=== PATIENT | female | born 1940 | race Caucasian/White ===

== ENCOUNTER 2017-05-28 10:13 | Outpatient (CLI) | payer MEDICARE ==
--- NOTE | 2017-05-28 11:49 | MRI ---
MRI LUMBAR SPINE WITHOUT CONTRAST: Date: 05/28/17 COMPARISON: 11/02/15. HISTORY: Back pain radiating down the right hip and leg for 6 months, right lower extremity radiculopathy. TECHNIQUE: Multiplanar, multisequence MR imaging of the lumbar spine provided without contrast. FINDINGS: Significant stable lumbar spine levoscoliosis present. The sagittal STIR imaging demonstrates no focal area of osseous marrow edema. There is diverticulosi s suspected in the region of the sigmoid colon on the right, only appreciated on the sagittal imagin g. There is linear increased T2 signal adjacent to the sigmoid diverticula on the STIR imaging sugge sting the possibility of associated diverticulitis. Dedicated CT examination of abdomen/pelvis is ad vised as this is only partially imaged on this examination. Assuming five lumbar-type vertebral bodies, conus medullaris terminates at T12-L1. There is minimal anterolisthesis of L5 on S1, stable. T11-12: Disc space narrowing, disc desiccation, and posterior osteophyte formation noted. Bilateral facet hy pertrophy present. No significant central canal stenosis. Mild bilateral neural foraminal stenosis. T12-L1: Bilateral facet hypertrophy present with disc space narrowing, disc desiccation, and mild disc osteo phyte complex. No associated central canal stenosis. Mild bilateral neural foraminal stenosis. L1-2: Mild bilateral facet hypertrophy. There is disc space narrowing, disc desiccation, and posterior dis c osteophyte complex. No significant central canal stenosis. Mild/moderate right neural foraminal st enosis. No significant left neural foraminal stenosis. L2-3: Disc space narrowing and disc desiccation noted. Disc osteophyte complex present with no significant central canal stenosis. Mild bilateral facet hypertrophy, right greater than left. Mild bilateral n eural foraminal stenosis. L3-4: Disc space narrowing and disc desiccation present with disc osteophyte complex. No significant centr al canal stenosis. Mild bilateral neural foraminal stenosis. L4-5: Disc space narrowing and disc desiccation present. Disc osteophyte complex noted. Bilateral facet hy pertrophy present, left greater than right. Mild bilateral neural foraminal stenosis, left greater t ferguson right. L5-S1: Bilateral facet hypertrophy present with mild bilateral neural foraminal stenosis. There is disc spa ce narrowing, disc desiccation, and vacuum disc formation. No significant central canal stenosis. IMPRESSION: 1. Multilevel degenerative change as detailed above. 2. Partially imaged pelvis demonstrates colonic diverticulosis with adjacent linear increased T2 si gnal suggesting inflammatory change on the basis of diverticulitis. Colonic neoplasia is a possibil ity as well. This is only partially imaged, however. Thus, dedicated CT examination of abdomen/pelvi s with IV and oral contrast is advised for further assessment. CODE T. POS: SJ
== END 2017-05-28 10:14 | disposition home or self-care (01) ==
LOC: SCSMRI 10:13
PROVIDERS: ATTEND Anesthesiology Pain Medicine
DX: M47.26 Other spondylosis with radiculopathy, lumbar region (principal); M70.62 Trochanteric bursitis, left hip; K57.30 Diverticulosis of large intestine without perforation or abscess without bleeding
CPT/HCPCS: 72148

== ENCOUNTER 2017-11-09 13:41 | Outpatient (CLI) | payer MEDICARE | END 2017-11-09 13:42 | disposition home or self-care (01) | LOC: BICMAMMO 13:41 | PROVIDERS: ATTEND Obstetrics & Gynecology | DX: Z12.31 Encounter for screening mammogram for malignant neoplasm of breast (principal) | CPT/HCPCS: 77063; 77067 ==

== ENCOUNTER 2019-01-09 14:32 | Emergency (ER) | payer MEDICARE | END 2019-01-09 15:10 | disposition home or self-care (01) | LOC: SCSER 14:32 | DX: L02.612 Cutaneous abscess of left foot (principal); I10 Essential (primary) hypertension; F32.9 Major depressive disorder, single episode, unspecified | CPT/HCPCS: 10060 ==

== ENCOUNTER 2019-01-27 11:22 | Emergency (ER) | payer MEDICARE ==
[2019-01-27 12:14] LABS: #Basophils 0.1 thou/uL (0.0-0.2); #Lymphocytes 0.7 thou/uL (1.20-3.40); #Neutrophils 15.1 thou/uL (1.40-6.50); %Basophils 0.4 % (0.0-1.0); %Eosinophils 0.3 % (0.0-10.0); %Lymphocytes 4.1 % (21.0-51.0); %Monocytes 5.9 % (0.0-10.0); %Neutrophils 89.3 % (42.0-75.0); Hemoglobin 13.4 g/dL (12.0-16.0); Mean Corpuscular HGB CONC 34.4 g/dL (32.0-36.0); Mean Corpuscular Hemoglobin 29.1 pg (27.0-31.0); Mean Corpuscular Volume 84.4 fL (78.0-98.0); Mean Platelet Volume 8.2 fL (7.4-10.4); Platelet Count 192 thou/uL (130-400); RBC Distribution Width 12.7 % (11.5-14.5); Red Blood Cell (RBC) Count 4.59 mill/uL (4.20-5.40); White Blood Cell (WBC) Count 16.9 thou/uL (4.8-10.8)
[2019-01-27 12:26] LABS: ALT (SGPT) 20 U/L (8-55); AST (SGOT) 17 U/L (5-34); Albumin 3.8 g/dL (3.4-4.8); Alkaline Phosphatase 60 U/L (40-150); Anion Gap 12 mmol/L (10-20); BUN (Urea Nitrogen) 20 mg/dL (9.8-20.1); Bilirubin, Total 0.9 mg/dL (0.2-1.2); Calc. Creatinine Clearance 0 mL/min (70-130); Calcium 9.1 mg/dL (7.8-10.44); Carbon Dioxide 25 mmol/L (23-31); Chloride 102 mmol/L (98-107); Estimated GFR-MDRD 78; Globulin 2.7 g/dL (2.4-3.5); Glucose 134 mg/dL (83-110); Potassium 3.1 mmol/L (3.5-5.1); Protein, Total 6.5 g/dL (6.0-8.3); Sodium 136 mmol/L (136-145)
[2019-01-27 12:47] LABS: Bilirubin Small (Negative); Blood, Urine Negative (Negative); Clarity Cloudy (Clear); Glucose, Urine (Dipstick) Negative (Negative); Leukocyte Moderate (Negative); Nitrite Negative (Negative); Protein, Urine (Dipstick) 30 mg/dL (Neg-Trace)
[2019-01-27] MEDS ORDERED: Pot Chloride/Pot Bicarb/Cit Ac 25 mEq Effervescent Tablet ONE (12:49)
[2019-01-27 12:51] LABS: Bacteria/HPF 1+ HPF (None Seen); RBC/HPF 0-3 HPF (0-3); WBC/HPF 0-3 HPF (0-3)
== END 2019-01-27 13:22 | disposition home or self-care (01) ==
LOC: SCSER 11:22
DX: E86.0 Dehydration (principal); E87.6 Hypokalemia; F32.9 Major depressive disorder, single episode, unspecified
CPT/HCPCS: 80053; 81003; 81015; 85025; 85379; 99284

== ENCOUNTER 2019-05-02 12:42 | Outpatient (CLI) | payer MEDICARE ==
--- NOTE | 2019-05-02 15:50 | MMO ---
Bilateral MAMMO Bilat Screen [facility]. CLINICAL HISTORY: Patient is 78 years old and is seen for screening. The patient has no family history of breast cancer. The patient has no personal history of cancer. The patient has a history of left Excisional Biopsy in - benign. VIEWS: The views performed were: bilateral craniocaudal with tomosynthesis and bilateral mediolateral oblique with tomosynthesis. FILMS COMPARED: The present examination has been compared to prior imaging studies performed at [facility] on 11/09/2017, and at [facility] on 06/16/2014 and 09/28/2015. This study has been interpreted with the assistance of computer-aided detection. MAMMOGRAM FINDINGS: There are scattered fibroglandular densities. There are stable benign appearing calcifications seen in both breasts. There are no suspicious masses, calcifications or areas of architectural distortion. There are no suspicious masses, suspicious calcifications, or new areas of architectural distortion. IMPRESSION: THERE IS NO MAMMOGRAPHIC EVIDENCE OF MALIGNANCY. A ROUTINE FOLLOW-UP MAMMOGRAM IN 1 YEAR IS RECOMMENDED. THE RESULTS OF THIS EXAM WERE SENT TO THE PATIENT. ACR BI-RADS Category 2 - Benign finding MAMMOGRAPHY NOTE: 1. A negative mammogram report should not delay a biopsy if a dominant of clinically suspicious mass is present. 2. Approximately 10% to 15% of breast cancers are not detected by mammography. 3. Adenosis and dense breasts may obscure an underlying neoplasm. Reported by: AARON ROCHA MD Electonically Signed: [id number]
== END 2019-05-02 12:43 | disposition home or self-care (01) ==
LOC: BICMAMMO 12:42
PROVIDERS: ATTEND Internal Medicine
DX: Z12.31 Encounter for screening mammogram for malignant neoplasm of breast (principal); Z91.89 Other specified personal risk factors, not elsewhere classified
CPT/HCPCS: 77063; 77067

== ENCOUNTER 2019-07-05 10:19 | Emergency (ER) | payer MEDICARE ==
[2019-07-05] MEDS ORDERED: Clindamycin/D5W 600 mg/50 ml Premix Bag ONE (10:55)
[2019-07-05] MEDS ORDERED: Piperacillin/Tazobactam 4.5 GM VIAL ONE (10:55)
[2019-07-05 11:14] LABS: #Basophils 0.1 thou/uL (0.0-0.2); #Eosinphils 0.2 thou/uL (0.0-0.7); #Lymphocytes 2.1 thou/uL (1.20-3.40); #Monocytes 0.7 thou/uL (0.11-0.59); #Neutrophils 6.2 thou/uL (1.40-6.50); %Eosinophils 1.7 % (0.0-10.0); %Lymphocytes 22.6 % (21.0-51.0); %Monocytes 7.4 % (0.0-10.0); %Neutrophils 67.4 % (42.0-75.0); Hemoglobin 13.4 g/dL (12.0-16.0); Mean Corpuscular HGB CONC 32.8 g/dL (32.0-36.0); Mean Corpuscular Hemoglobin 28.4 pg (27.0-31.0); Mean Corpuscular Volume 86.7 fL (78.0-98.0); Mean Platelet Volume 9.6 fL (7.4-10.4); Platelet Count 234 thou/uL (130-400); RBC Distribution Width 12.1 % (11.5-14.5); Red Blood Cell (RBC) Count 4.73 mill/uL (4.20-5.40); White Blood Cell (WBC) Count 9.2 thou/uL (4.8-10.8)
[2019-07-05 11:25] LABS: ALT (SGPT) 26 U/L (8-55); AST (SGOT) 21 U/L (5-34); Albumin 4.2 g/dL (3.4-4.8); Alkaline Phosphatase 79 U/L (40-110); Anion Gap 15 mmol/L (10-20); BUN (Urea Nitrogen) 14 mg/dL (9.8-20.1); Bilirubin, Total 0.8 mg/dL (0.2-1.2); Calc. Creatinine Clearance 0 mL/min (70-130); Calcium 9.8 mg/dL (7.8-10.44); Carbon Dioxide 27 mmol/L (23-31); Chloride 100 mmol/L (98-107); Estimated GFR-MDRD 82; Glucose 111 mg/dL (83-110); Potassium 3.5 mmol/L (3.5-5.1); Protein, Total 7.2 g/dL (6.0-8.3); Sodium 138 mmol/L (136-145)
== END 2019-07-05 13:57 | disposition short-term general hospital (02) ==
LOC: SCSER 10:19
DX: L03.116 Cellulitis of left lower limb (principal); I10 Essential (primary) hypertension; F32.9 Major depressive disorder, single episode, unspecified; Z79.899 Other long term (current) drug therapy
CPT/HCPCS: 36415; 80053; 83605; 85025; 87040; 96365; 96366; 96367; 96368; J2543; J3370; J3490

== ENCOUNTER 2021-09-19 19:00 | Outpatient (CLI) | payer MEDICARE, OTHER | END 2021-09-19 19:01 | disposition home or self-care (01) | LOC: SLEEPLAB 19:00 | PROVIDERS: ATTEND Physician Assistant | DX: G47.33 Obstructive sleep apnea (adult) (pediatric) (principal); I10 Essential (primary) hypertension; R06.83 Snoring; G47.00 Insomnia, unspecified; G47.10 Hypersomnia, unspecified | CPT/HCPCS: 95810 ==

== ENCOUNTER 2021-11-18 10:48 | Outpatient (CLI) | payer MEDICARE, OTHER | END 2021-11-18 10:49 | disposition home or self-care (01) | LOC: BICRAD 10:48 | PROVIDERS: ATTEND Anesthesiology Pain Medicine | DX: M25.511 Pain in right shoulder (principal) ==

== ENCOUNTER 2022-09-28 08:51 | Outpatient (CLI) | payer MEDICARE, OTHER | END 2022-09-28 08:52 | disposition home or self-care (01) | LOC: BICRAD 08:51 | PROVIDERS: ATTEND Nurse Practitioner Family | DX: M25.551 Pain in right hip (principal); R07.89 Other chest pain | CPT/HCPCS: 71046 ==

== ENCOUNTER 2023-07-03 06:02 | Day surgery (SDC) | payer MEDICARE, OTHER ==
[2023-06-29 11:09] VITALS: BMI 35.4
[~2023-07-03 06:02] MED LIST: EPINEPHrine 0.3 MG in Ophthalmic Irrigation Solution 500 ML IRR SCH
[2023-07-03] MEDS ORDERED: Cyclopentolate W/ Phenylephrin 5 ML BOT ONE (07:00)
[2023-07-03] MEDS ORDERED: fentaNYL PF 100 MCG/2 ML SYRINGE ONE ×2 (07:07→08:47)
[2023-07-03] MEDS ORDERED: PROPOFOL 20 ML ONE (07:20)
[2023-07-03] MEDS ORDERED: Lidocaine 1% PF 5 ML VIAL ONE ×2 (07:21→07:44)
[2023-07-03] MEDS ORDERED: Bupivacaine 0.75% 10 ML VIAL ONE (07:44)
[2023-07-03] MEDS ORDERED: Triamcinolone 40 MG/ML VIAL ONE (07:44)
[2023-07-03] MEDS ORDERED: CEFAZOLIN 1 GM VIAL ONE (07:44)
[2023-07-03] MEDS ORDERED: Maxitrol 0.1% Opth Oint 3.5 GM TUBE ONE (07:44)
[2023-07-03] MEDS ORDERED: Lidocaine 4% PF 5 ML AMP ONE (07:44)
== END 2023-07-03 08:35 | disposition home or self-care (01) ==
LOC: SDC 06:02
PROVIDERS: ATTEND Ophthalmology Retina Specialist
PROC: 08T53ZZ Resection of Left Vitreous, Percutaneous Approach (ICD-10-PCS; principal; 2023-07-03)
DX: H43.392 Other vitreous opacities, left eye (principal); Z88.2 Allergy status to sulfonamides
CPT/HCPCS: J0171; J0690; J2704; J3301; J3490

== ENCOUNTER 2023-08-23 11:33 | Outpatient (CLI) | payer MEDICARE, OTHER | END 2023-08-23 11:34 | disposition home or self-care (01) | LOC: RAD 11:33 | PROVIDERS: ATTEND Physician Assistant | DX: R06.02 Shortness of breath (principal) | CPT/HCPCS: 71046 ==

== ENCOUNTER 2023-09-21 05:54 | Day surgery (SDC) | payer MEDICARE, OTHER ==
[2023-09-20 12:32] VITALS: BMI 35.2
[2023-09-21] MEDS ORDERED: PHENYLEPHRINE-NS 100 MCG/ML 10 ML SYRINGE ONE (07:01)
[2023-09-21] MEDS ORDERED: PROPOFOL 20 ML ONE ×3 (07:01→08:13)
[2023-09-21] MEDS ORDERED: Lidocaine 2% PF 5 ML VIAL ONE (07:01)
[2023-09-21 09:58] LABS: #Basophils 0.1 thou/uL (0.0-0.2); #Monocytes 0.4 thou/uL (0.11-0.59); #Neutrophils 5.2 thou/uL (1.40-6.50); %Basophils 0.6 % (0.0-1.0); %Eosinophils 0.5 % (0.0-10.0); %Lymphocytes 26.4 % (21.0-51.0); %Monocytes 5.5 % (0.0-10.0); %Neutrophils 66.7 % (42.0-75.0); Hematocrit 34.8 % (36.0-47.0); Hemoglobin 10.6 g/dL (12.0-16.0); Mean Corpuscular HGB CONC 30.5 g/dL (32.0-36.0); Mean Corpuscular Hemoglobin 22.7 pg (27.0-31.0); Mean Corpuscular Volume 74.5 fl (78.0-98.0); Mean Platelet Volume 9.9 fL (7.4-10.4); Platelet Count 232 10x3/uL (130-400); Red Blood Cell (RBC) Count 4.67 mill/uL (4.20-5.40); White Blood Cell (WBC) Count 7.8 10x3/uL (4.8-10.8)
[2023-09-21 10:31] LABS: ALT (SGPT) 13 U/L (8-55); AST (SGOT) 16 U/L (5-34); Alkaline Phosphatase 76 U/L (40-110); Anion Gap 14 mmol/L (10-20); BUN (Urea Nitrogen) 16 mg/dL (9.8-20.1); Bilirubin, Total 0.6 mg/dL (0.2-1.2); Calc. Creatinine Clearance 79 mL/min (70-130); Calcium 9.3 mg/dL (7.8-10.44); Carbon Dioxide 25 mmol/L (23-31); Chloride 101 mmol/L (98-107); Estimated GFR 77; Globulin 2.6 g/dL (2.4-3.5); Glucose 124 mg/dL (83-110); Potassium 3.2 mmol/L (3.5-5.1); Protein, Total 6.6 g/dL (5.8-8.1)
[2023-09-21 10:38] LABS: CellaVision Operator ID LAB.GE; Elliptocytes SLIGHT = 2-5 cells HPF (0-1); Microcytosis SLIGHT = 6-15 cells (100X) (0-5/hpf); Ovalocytes SLIGHT = 2-5 cells HPF (0-1); Platelet Adequacy Comment Platelets Normal; Polychromasia SLIGHT = 2-3 cells HPF (0-2)
[2023-09-21 10:44] LABS: Sodium 137 mmol/L (136-145)
[2023-09-21] MEDS ORDERED: Iopamidol-370 76% 500 ML MDV (1 ML CHARGE) ONE (15:04)
== END 2023-09-21 12:09 | disposition home or self-care (01) ==
LOC: SDC 05:54
PROVIDERS: ATTEND Internal Medicine Gastroenterology
PROC: 0DB98ZX Excision of Duodenum, Via Natural or Artificial Opening Endoscopic, Diagnostic (ICD-10-PCS; principal; 2023-09-21)
PROC: 0DB68ZX Excision of Stomach, Via Natural or Artificial Opening Endoscopic, Diagnostic (ICD-10-PCS; 2023-09-21)
PROC: 0DB98ZZ Excision of Duodenum, Via Natural or Artificial Opening Endoscopic (ICD-10-PCS; 2023-09-21)
PROC: 0DBM8ZZ Excision of Descending Colon, Via Natural or Artificial Opening Endoscopic (ICD-10-PCS; 2023-09-21)
PROC: 0DBL8ZX Excision of Transverse Colon, Via Natural or Artificial Opening Endoscopic, Diagnostic (ICD-10-PCS; 2023-09-21)
DX: D12.4 Benign neoplasm of descending colon (principal); D12.3 Benign neoplasm of transverse colon; K29.70 Gastritis, unspecified, without bleeding; D50.9 Iron deficiency anemia, unspecified; K44.9 Diaphragmatic hernia without obstruction or gangrene; K31.89 Other diseases of stomach and duodenum; K57.30 Diverticulosis of large intestine without perforation or abscess without bleeding; K63.3 Ulcer of intestine; K21.9 Gastro-esophageal reflux disease without esophagitis; I10 Essential (primary) hypertension; Z90.49 Acquired absence of other specified parts of digestive tract; Z90.710 Acquired absence of both cervix and uterus; Z79.899 Other long term (current) drug therapy
CPT/HCPCS: 36415; 71260; 74177; 80053; 82378; 85025; 88305; J2001; J2704; Q9967

== ENCOUNTER 2023-11-09 08:59 | Outpatient (CLI) | payer MEDICARE, OTHER ==
[2023-11-09 10:04] LABS: #Basophils 0.1 10x3/uL (0.0-0.2); #Eosinphils 0.2 10x3/uL (0.0-0.5); #Monocytes 0.7 10x3/uL (0.0-1.1); #Neutrophils 4.8 10x3/uL (1.5-8.4); %Eosinophils 2.8 % (0.0-6.0); %Lymphocytes 16.4 % (18.0-47.0); %Monocytes 9.5 % (0.0-10.0); %Neutrophils 69.9 % (40.0-75.0); Hematocrit 34.1 % (34.9-44.5); Hemoglobin 10.8 g/dL (12.0-15.5); Mean Corpuscular HGB CONC 31.7 g/dL (32.0-36.0); Mean Corpuscular Hemoglobin 27.6 pg (27.0-33.0); Mean Corpuscular Volume 87.2 fl (81.6-98.3); Mean Platelet Volume 9.6 fl (7.4-10.4); Platelet Count 165 10x3/uL (150-450); RBC Distribution Width 20.4 % (11.5-14.5); Red Blood Cell (RBC) Count 3.91 10x6/uL (3.90-5.03); White Blood Cell (WBC) Count 6.8 10x3/uL (3.5-10.5)
[2023-11-09 10:58] LABS: Anion Gap 12 mmol/L (10-20); BUN (Urea Nitrogen) 14 mg/dL (9.8-20.1); Calc. Creatinine Clearance 0 mL/min (70-130); Calcium 8.9 mg/dL (7.8-10.44); Carbon Dioxide 24 mmol/L (23-31); Chloride 109 mmol/L (98-107); Estimated GFR 78; Glucose 128 mg/dL (83-110); Potassium 3.7 mmol/L (3.5-5.1); Sodium 141 mmol/L (136-145)
[2023-11-09 14:55] LABS: Hemoglobin A1c 5.2 % (4.0-6.0)
== END 2023-11-09 09:00 | disposition home or self-care (01) ==
LOC: LABBT 08:59
PROVIDERS: ATTEND Specialist
DX: Z01.818 Encounter for other preprocedural examination (principal); C18.9 Malignant neoplasm of colon, unspecified
CPT/HCPCS: 71046; 80048; 83036; 85025

== ENCOUNTER 2023-11-09 09:00 | Inpatient (IN) | payer MEDICARE, OTHER ==
[2023-11-09 09:55] VITALS: BMI 35.4
[2023-11-13] MEDS ORDERED: fentaNYL 50 mcg/mL 1 mL Vial ONE ×3 (08:35→12:07)
[2023-11-13] MEDS ORDERED: Midazolam HCl 2 mg/2 ml Vial ONE (08:35)
[2023-11-13] MEDS ORDERED: Bupivacaine 0.25% HCL 30 ML VIAL ONE (08:35)
[2023-11-13] MEDS ORDERED: Acetaminophen 500 MG TAB ONE (08:49)
[2023-11-13] MEDS ORDERED: Ketorolac Tromethamine 30 MG (1 mL) VIAL ONE (08:49)
[2023-11-13] MEDS ORDERED: cefOXitin 2 GM VIAL ONE ×2 (09:02→12:18)
[2023-11-13] MEDS ORDERED: Sodium Chloride 0.9% 100 ML ONE (09:02)
[2023-11-13] MEDS ORDERED: EPINEPHrine 1 MG/ML VIAL ONE (09:54)
[2023-11-13] MEDS ORDERED: Lidocaine 1% (PF) 30 ML VIAL ONE (09:55)
[2023-11-13] MEDS ORDERED: Lidocaine 2% PF 5 ML VIAL ONE (10:02)
[2023-11-13] MEDS ORDERED: Dexamethasone 4 mg/ml Vial ONE (10:02)
[2023-11-13] MEDS ORDERED: Rocuronium Bromide 10 MG/ML (10ML VIAL) ONE (10:02)
[2023-11-13] MEDS ORDERED: PROPOFOL 20 ML ONE (10:02)
[2023-11-13] MEDS ORDERED: SUGAMMADEX SODIUM 200 MG/2 ML VIAL ONE (10:03)
[2023-11-13] MEDS ORDERED: ePHEDrine Sulfate 50 MG/10 ML VIAL ONE (10:38)
[2023-11-13] MEDS ORDERED: HYDROmorphone 2 MG/ML VIAL SLOW IVP PRN (11:07)
[2023-11-13] MEDS ORDERED: Ondansetron HCl/PF 4 MG/2 ML Vial IVP PRN (11:07)
[2023-11-13] MEDS ORDERED: Ondansetron PF 4 MG/2 ML Vial ONE (12:21)
[2023-11-13] MEDS ORDERED: Morphine 2 MG/ML VIAL SLOW IVP PRN (13:53)
[2023-11-13] MEDS ORDERED: Ipratropium/Albuterol 3 ML NEB NEB PRN (13:53)
[2023-11-13] MEDS ORDERED: hydrALAZINE 20 MG/ML VIAL SLOW IVP PRN (13:53)
[2023-11-13] MEDS ORDERED: Promethazine HCl 25 MG/ML VIAL IM PRN (13:53)
[2023-11-13] MEDS ORDERED: Morphine 4 MG/ML VIAL SLOW IVP PRN (13:53)
[2023-11-13] MEDS: D5 1/2 NS w/20 mEq KCL 1,000 ML IV SCH (17:20)
[2023-11-13] MEDS: Ketorolac Tromethamine 30 MG (1 mL) VIAL IVP SCH (17:21)
[2023-11-13] MEDS: Mirabegron ER 25 MG ER.TAB PO SCH (21:25)
[2023-11-13] MEDS: Famotidine 20 MG TAB PO SCH (21:25)
[2023-11-13] MEDS: Carvedilol 6.25 MG TAB PO SCH (21:26)
[2023-11-13] MEDS: Loratadine 10 MG TAB PO SCH (21:26)
[2023-11-13] MEDS: Famotidine/PF 20 mg/2ml Vial SLOW IVP SCH (21:28)
[2023-11-13] MEDS: Ondansetron PF 4 MG/2 ML Vial IVP PRN (23:08)
[2023-11-14 04:22] LABS: #Basophils Less than 0.03 10x3/uL (0.0-0.2); %Basophils 0.3 % (0.0-1.0); %Eosinophils 0.4 % (0.0-10.0); %Lymphocytes 15.9 % (21.0-51.0); %Neutrophils 76.1 % (42.0-75.0); Anion Gap 12 mmol/L (10-20); BUN (Urea Nitrogen) 6 mg/dL (9.8-20.1); Calc. Creatinine Clearance 102 mL/min (70-130); Calcium 8.3 mg/dL (7.8-10.44); Carbon Dioxide 25 mmol/L (23-31); Chloride 106 mmol/L (98-107); Estimated GFR 89; Glucose 140 mg/dL (83-110); Hematocrit 29.1 % (36.0-47.0); Hemoglobin 9.2 g/dL (12.0-16.0); Mean Corpuscular HGB CONC 31.6 g/dL (32.0-36.0); Mean Corpuscular Volume 88.4 fL (78.0-98.0); Mean Platelet Volume 9.9 fL (7.4-10.4); Platelet Count 127 10x3/uL (130-400); Potassium 2.9 mmol/L (3.5-5.1); RBC Distribution Width 18.2 % (11.5-14.5); Red Blood Cell (RBC) Count 3.29 mill/uL (4.20-5.40); Sodium 140 mmol/L (136-145)
[2023-11-14 05:39] LABS: Platelet Adequacy Comment Platelets Decreased; RBC Morphology Within Normal Limits
[2023-11-14] MEDS: Enoxaparin 40 MG (0.4 mL) SYRINGE SC SCH (08:56)
[2023-11-14] MEDS: Clopidogrel Bisulfate 75 MG TAB PO SCH (08:56)
[2023-11-14] MEDS: Aspirin 81 mg Enteric Coated Tablet PO SCH (08:57)
[2023-11-14] MEDS: Atorvastatin Calcium 20 MG TAB PO SCH (08:57)
[2023-11-14] MEDS: Zinc Sulfate 220 MG CAP PO SCH (08:57)
[2023-11-14] MEDS: Ferrous Sulfate 325 MG TAB PO SCH (08:57)
[2023-11-14] MEDS: Potassium Chloride 10 MEQ TAB PO SCH (08:57)
[2023-11-14] MEDS: Amlodipine 5 MG TAB PO SCH (08:57)
[2023-11-14] MEDS: Potassium Chloride 20 MEQ TAB PO SCH (08:57)
[2023-11-14] MEDS: D5 1/2 NS w/20 mEq KCL 1,000 ML IV SCH (12:23)
[2023-11-14] MEDS ORDERED: HYDROcodone/Acetaminophen 7.5/325 mg Tablet PO PRN (12:45)
[2023-11-14] MEDS ORDERED: Acetaminophen 325 MG TAB PO PRN (12:45)
[2023-11-15 04:10] LABS: #Basophils 0.03 10x3/uL (0.0-0.2); %Basophils 0.5 % (0.0-1.0); %Eosinophils 6.1 % (0.0-10.0); %Lymphocytes 25.3 % (21.0-51.0); %Monocytes 7.6 % (0.0-10.0); %Neutrophils 60.2 % (42.0-75.0); Hemoglobin 8.5 g/dL (12.0-16.0); Mean Corpuscular HGB CONC 31.5 g/dL (32.0-36.0); Mean Corpuscular Hemoglobin 28.4 pg (27.0-31.0); Mean Corpuscular Volume 90.3 fL (78.0-98.0); Mean Platelet Volume 9.4 fL (7.4-10.4); Platelet Count 118 10x3/uL (130-400); RBC Distribution Width 17.9 % (11.5-14.5); Red Blood Cell (RBC) Count 2.99 mill/uL (4.20-5.40)
[2023-11-15 04:37] LABS: Platelet Adequacy Comment Platelets Decreased; RBC Morphology Within Normal Limits
[2023-11-15 07:54] VITALS: BP 159/85; TEMP 98
== END 2023-11-15 12:26 | disposition home or self-care (01) | DRG 331 ==
LOC: SURG A 11-13 07:31
PROVIDERS: ADMIT Specialist; ATTEND Specialist
PROC: 0DTF4ZZ Resection of Right Large Intestine, Percutaneous Endoscopic Approach (ICD-10-PCS; principal; 2023-11-13)
DX: C18.4 Malignant neoplasm of transverse colon (principal); G47.33 Obstructive sleep apnea (adult) (pediatric); I10 Essential (primary) hypertension; M19.90 Unspecified osteoarthritis, unspecified site; K21.9 Gastro-esophageal reflux disease without esophagitis; Z96.653 Presence of artificial knee joint, bilateral; Z96.641 Presence of right artificial hip joint; I25.10 Atherosclerotic heart disease of native coronary artery without angina pectoris; E78.5 Hyperlipidemia, unspecified; K64.9 Unspecified hemorrhoids; Z88.2 Allergy status to sulfonamides; Z88.1 Allergy status to other antibiotic agents; Z90.49 Acquired absence of other specified parts of digestive tract
CPT/HCPCS: 36415; 36416; 80048; 85025; 86850; 86900; 86901; A4314; A4649; J0171; J0665; J0694; J1100; J1650; J1885; J2001; J2250; J2405; J2704; J3010; J3480; J3490; S0028